=== PATIENT | female | born 1965 | race Caucasian/White ===

== ENCOUNTER 2017-12-20 14:50 | Emergency (ER) | END 2017-12-20 17:35 | disposition home or self-care (01) ==

== ENCOUNTER 2018-01-03 18:04 | Emergency (ER) | END 2018-01-03 21:09 | disposition home or self-care (01) ==

== ENCOUNTER 2018-10-29 11:11 | Emergency (ER) | payer MEDICAID ==
[~2018-10-29] VITALS: Ht 167.6 cm; Wt 62.6 kg
[~2018-10-29 11:11] MED LIST: IBUP-1542 PO
[2018-10-29 11:14] VITALS: BP 151/75; PULSE 69; RESP 20; Ht 167.6 cm; Wt 62.6 kg
[2018-10-29] MEDS ORDERED: ONDANSETRON (ODT) 4 MG TAB ODT STA (13:01)
[2018-10-29] MEDS ORDERED: LOPE2CAP PO (13:03)
[2018-10-29] MEDS ORDERED: ONDA4TAB14 PO (13:03)
--- NOTE | 2018-10-29 13:08 | ERD ---
ER Documentation Chief Complaint Chief Complaint Complains of vomiting and diarrhea x 2 days HPI 53-year-old female presents for nausea vomiting diarrhea times 2 days. She states that about 2 episodes of vomiting per day. She said 6 episodes of diarrhea per day. She states that the diarrhea is watery. No bright red blood or dark stools noted. She also has associated periumbilical abdominal pain which is noted to be mild. She states that the pain is worse with eating. No recent travel. No fevers or chills noted. Denies dysuria. ROS All systems reviewed and are negative except as per history of present illness. Medications Home Meds Active Scripts Loperamide Hcl* (Imodium*) 2 Mg Capsule, 2 MG PO TID PRN for DIARRHEA, #15 TAB Prov:AYLEEN REESE DO 10/29/18 Ondansetron (Ondansetron Odt) 4 Mg Tab.rapdis, 4 MG PO Q6H PRN for NAUSEA AND/OR VOMITING, #15 TAB Prov:AYLEEN REESE DO 10/29/18 Ibuprofen* (Motrin*) 600 Mg Tab, 600 MG PO Q6, #15 TAB Prov:FRANNY CASTILLO PA-C 01/03/18 Ibuprofen* (Motrin*) 600 Mg Tab, 600 MG PO Q6, #30 TAB Prov:AYLEEN BLACKWELL MD 12/20/17 Allergies Allergies: Coded Allergies: No Known Allergy (Unverified , 01/03/18) PMhx/Soc Medical and Surgical Hx: pt denies Medical Hx, pt denies Surgical Hx Hx Alcohol Use: No Hx Substance Use: No Hx Tobacco Use: No Smoking Status: Never smoker Physical Exam Vitals Vital Signs Date Temp Pulse Resp B/P (MAP) Pulse Ox O2 O2 Flow FiO2 Time Delivery Rate 10/29/18 98.5 69 20 151/75 100 11:14 (100) Physical Exam Const: No acute distress Resp: Clear to auscultation bilaterally Cardio: Regular rate and rhythm, no murmurs Abd: Soft, non distended. Normal bowel sounds, mild periumbilical tenderness to palpation, no Velazquez sign, no McBurney's point tenderness, no rebound or guar ding noted. Skin: No petechiae or rashes Back: No midline or flank tenderness Ext: No cyanosis, or edema Neur: Awake and alert Psych: Normal Mood and Affect Results 24 hrs Current Medications Medications Dose Sig/Ember Start Time Status Last (Trade) Ordered Route PRN Stop Time Admin Dose Reason Admin Ondansetron 4 mg ONCE STAT 10/29/18 DC HCl (Zofran ODT 13:01 10/29/18 Odt) 13:02 Procedures/MDM Medical Decision Making: Differential diagnosis includes but not limited to acute gastroenteritis, appendicitis, cholecystitis, pancreatitis. Patient appeared well on physical exam. Nontoxic appearing. Abdominal examination benign. There is low suspicion for acute abdomen. Patient likely has An acute gastroenteritis. Likely viral. ED course: Patient was given Zofran. Symptoms improved with treatment. Prescription(s): Patient given prescription for Zofran. Patient advised to follow up with PCP in 1-2 days. Patient advised to return to ED for new or worsening symptoms. Patient stable on discharge from the ED. Disclaimer: Inadvertent spelling and grammatical errors are likely due to EHR/dictation software use and do not reflect on the overall quality of patient care. Also, please note that the electronic time recorded on this note does not necessarily reflect the actual time of the patient encounter. Departure Diagnosis: Primary Impression: Nausea vomiting and diarrhea Condition: Fair Patient Instructions: Gastroenteritis, Viral (6Y-Adult) Referrals: COMMUNITY CLINICS YOU HAVE RECEIVED A MEDICAL SCREENING EXAM AND THE RESULTS INDICATE THAT YOU DO NOT HAVE A CONDITION THAT REQUIRES URGENT TREATMENT IN THE EMERGENCY DEPARTMENT. FURTHER EVALUATION AND TREATMENT OF YOUR CONDITION CAN WAIT UNTIL YOU ARE SEEN IN YOUR DOCTORS OFFICE WITHIN THE NEXT 1-2 DAYS. IT IS YOUR RESPONSIBILITY TO MAKE AN APPOINTMENT FOR FOLOW-UP CARE. IF YOU HAVE A PRIMARY DOCTOR --you should call your primary doctor and schedule an appointment IF YOU DO NOT HAVE A PRIMARY DOCTOR YOU CAN CALL OUR PHYSICIAN REFERRAL HOTLINE AT IF YOU CAN NOT AFFORD TO SEE A PHYSICIAN YOU CAN CHOSE FROM THE FOLLOWING [facility] CL[facility]ICS [facility] [address] [place] [facility] [address] [facility] [address] [facility] [address] [facility] [address] [facility]. [facility]. [address] Additional Instructions: Llame al doctor MAANA y shweta shira ZHANE PARA DENTRO DE 1-2 LINDSEY.Dgale a la secretaria que nosotros le instruimos hacer esta zhane.Avise o llame si gray condicin se empeora antes de la zhane. Regresa aqui si peor o no mejor. AYLEEN REESE DO Oct 29, 2018 13:08
== END 2018-10-29 13:16 | disposition home or self-care (01) ==
LOC: FTE 11:11
DX: R11.2 Nausea with vomiting, unspecified (principal); R19.7 Diarrhea, unspecified
CPT/HCPCS: Z7502; Z7610; 99283

== ENCOUNTER 2018-12-17 14:04 | Emergency (ER) | payer MEDICAID ==
[~2018-12-17] VITALS: Wt 63.6 kg
[~2018-12-17 14:04] MED LIST changes: +LOPE2CAP PO; +ONDA4TAB14 PO
[2018-12-17 16:09] VITALS: BP 145/91; PULSE 84; RESP 20
[2018-12-17] MEDS ORDERED: KETOROLAC 30 MG INJ IM STA (16:41)
[2018-12-17] MEDS ORDERED: HYDROCODONE/APAP (5/325) TAB PO ONE (17:00)
[2018-12-17] MEDS ORDERED: HYDR-4011 PO (17:56)
[2018-12-17] MEDS ORDERED: IBUP-1542 PO (17:56)
--- NOTE | 2018-12-17 17:59 | ERD ---
ER Documentation Chief Complaint Chief Complaint S/P MECHANICAL FALL FROM~3.5 FEET HIGH TODAY C/O L HIP, L GROIN PAIN HPI 53-year-old female slipped while cleaning some stairs. She landed on her left side but did not fall down the stairs. Her primary complaints of left rib pain and left hip pain. She is able to ambulate although with discomfort. Denies any head injury, neck pain, weakness or deficits. There is no bleeding or lacerations. ROS All systems reviewed and are negative except as per history of present illness. Medications Home Meds Active Scripts Hydrocodone/Acetaminophen ([place] 5-325 Tablet) 1 Each Tablet, 1 TAB PO Q6H PRN for PAIN, #7 TAB Prov:LA NENA VASQUEZ MD 12/17/18 Ibuprofen* (Motrin*) 600 Mg Tab, 600 MG PO Q6, #20 TAB Prov:LA NENA VASQUEZ MD 12/17/18 Loperamide Hcl* (Imodium*) 2 Mg Capsule, 2 MG PO TID PRN for DIARRHEA, #15 TAB Prov:AYLEEN REESE DO 10/29/18 Ondansetron (Ondansetron Odt) 4 Mg Tab.rapdis, 4 MG PO Q6H PRN for NAUSEA AND/OR VOMITING, #15 TAB Prov:AYLEEN REESE DO 10/29/18 Ibuprofen* (Motrin*) 600 Mg Tab, 600 MG PO Q6, #15 TAB Prov:FRANNY CASTILLO PA-C 01/03/18 Ibuprofen* (Motrin*) 600 Mg Tab, 600 MG PO Q6, #30 TAB Prov:AYLEEN BLACKWELL MD 12/20/17 Allergies Allergies: Coded Allergies: No Known Allergy (Unverified , 01/03/18) PMhx/Soc Medical and Surgical Hx: pt denies Medical Hx, pt denies Surgical Hx History of Surgery: No Anesthesia Reaction: No Hx Neurological Disorder: No Hx Respiratory Disorders: No Hx Cardiac Disorders: No Hx Psychiatric Problems: No Hx Miscellaneous Medical Probl: No Hx Alcohol Use: No Hx Substance Use: No Hx Tobacco Use: No Smoking Status: Never smoker FmHx Family History: No diabetes, No coronary disease, No other Physical Exam Vitals Vital Signs Date Temp Pulse Resp B/P (MAP) Pulse Ox O2 O2 Flow FiO2 Time Delivery Rate 12/17/18 99.1 84 20 145/91 98 16:09 (109) Physical Exam Const: No acute distress Head: Atraumatic Eyes: Normal Conjunctiva ENT: Normal External Ears, Nose and Mouth. Neck: Full range of motion. No meningismus. Resp: Clear to auscultation bilaterally Cardio: Regular rate and rhythm, no murmurs. Tenderness left approximately T10 area without crepitance, deformities, ecchymosis. Abd: Soft, non tender, non distended. Normal bowel sounds Skin: No petechiae or rashes Back: No midline or flank tenderness Ext: No cyanosis, or edema. Pain passive range of motion of the left hip. Patient is able to ablate all with the with discomfort. No appreciable focal neurologic deficits. Neur: Awake and alert Psych: Normal Mood and Affect Results 24 hrs Current Medications Medications Dose Sig/Ember Start Time Status Last (Trade) Ordered Route PRN Stop Time Admin Dose Reason Admin Ketorolac 30 mg ONCE STAT 12/17/18 DC 12/17/18 Tromethamine IM 16:41 16:52 (Toradol) 12/17/18 16:42 1 tab ONCE ONCE 12/17/18 DC 12/17/18 Acetaminophen PO 17:00 16:51 / 12/17/18 17:01 Hydrocodone Bitart ([place] (5/325)) Procedures/MDM X-ray left hip 2V Interpreted by me: Bones: No fracture Joints: No dislocation Foreign body: None impression-normal left hip x-ray X-ray left ribs 2V Interpreted by me: Soft Tissue: No acute abnormalities Bones: No acute abnormalities Mediastinum/Cardiac Silhouette/Lungs:No acute abnormalities. Impression have a normal left rib x-ray She was given Toradol 30 mg IM and [place] 500 mL. Patient presents after mechanical fall signs of left rib contusion left hip strain without signs of fracture, dislocation, head injury, neck injury, additional complications due to her mechanical fall today. She will discharged home with a short course of [place], ibuprofen, primary care follow-up and return precautions. Cures review negative. The patient was stable with no new complaints during the ER course. Clinically, there is no current evidence to suggest meningitis, sepsis, acute abdomen, pneumonia, stroke, acute coronary syndrome, pulmonary embolism, aortic dissection or any other emergent condition appearing to require further evaluation or hospitalization. Patient counseled regarding my diagnostic impression and care plan. Prior to discharge all questions answered. Pt agrees with treatment plan and understands strict return precautions. Pt is instructed to follow up with primary care provider within 24-48 hours. Precautionary instructions provided including instructions to return to the ER if not improving or for any worsening or changing symptoms or concerns. Departure Diagnosis: Primary Impression: Hip strain Encounter type: initial encounter Laterality: left Qualified Codes: S76.012A - Strain of muscle, fascia and tendon of left hip, initial encounter Additional Impressions: Contusion of ribs Encounter type: initial encounter Laterality: left Qualified Codes: S20.212A - Contusion of left front wall of thorax, initial encounter Fall with no significant injury Encounter type: initial encounter Qualified Codes: W19.XXXA - Unspecified fall, initial encounter Condition: Stable Patient Instructions: Fall, Mechanical, Hip Strain, Rib Contusion Additional Instructions: X-rays normal. Examines normal hoy. Cheque otro vez con gray doctor primario en el proximo cloud or regresa para mas o nueva simptomas. LA NENA VASQUEZ MD Dec 17, 2018 17:59
== END 2018-12-17 18:20 | disposition home or self-care (01) ==
LOC: FTE 14:04
DX: S76.012A Strain of muscle, fascia and tendon of left hip, initial encounter (principal); S20.212A Contusion of left front wall of thorax, initial encounter; W10.9XXA Fall (on) (from) unspecified stairs and steps, initial encounter; Y92.9 Unspecified place or not applicable
CPT/HCPCS: 71100; 73510; 96372; J1885; Z7502; Z7610

== ENCOUNTER 2018-12-25 15:02 | Emergency (ER) | payer MEDICAID ==
[~2018-12-25] VITALS: Ht 157.5 cm; Wt 63.0 kg
[~2018-12-25 15:02] MED LIST changes: +HYDR-4011 PO
[2018-12-25 15:07] VITALS: BP 168/78; PULSE 77; RESP 18; Ht 157.5 cm; Wt 63.0 kg
[2018-12-25] MEDS ORDERED: HYDR-4011 PO (16:12)
[2018-12-25] MEDS ORDERED: CYCL10TA7 PO (16:12)
--- NOTE | 2018-12-25 16:16 | ERD ---
ER Documentation Chief Complaint Chief Complaint LEFT SIDED RIB PAIN FROM FALL 1 WEEK AGO HPI 53-year-old female presents with left-sided rib cage pain and mid lower back pain that she had for about 8 days after she fell. She was seen here at that time and had x-rays which were negative. She was given prescriptions for ibuprofen and [place]. She states she continues to have pain particularly in the left ribs it feels like a pulling. No new recent trauma. ROS All systems reviewed and are negative except as per history of present illness. Medications Home Meds Active Scripts Hydrocodone/Acetaminophen ([place] 5-325 Tablet) 1 Each Tablet, 1 TAB PO Q6H PRN for PAIN, #15 TAB Prov:ALFRED IVERSON PA-C 12/25/18 Cyclobenzaprine Hcl* (Cyclobenzaprine Hcl*) 10 Mg Tablet, 10 MG PO TID, #15 TAB Prov:ALFRED IVERSON PA-C 12/25/18 Hydrocodone/Acetaminophen ([place] 5-325 Tablet) 1 Each Tablet, 1 TAB PO Q6H PRN for PAIN, #7 TAB Prov:LA NENA VASQUEZ MD 12/17/18 Ibuprofen* (Motrin*) 600 Mg Tab, 600 MG PO Q6, #20 TAB Prov:LA NENA VASQUEZ MD 12/17/18 Loperamide Hcl* (Imodium*) 2 Mg Capsule, 2 MG PO TID PRN for DIARRHEA, #15 TAB Prov:AYLEEN REESE DO 10/29/18 Ondansetron (Ondansetron Odt) 4 Mg Tab.rapdis, 4 MG PO Q6H PRN for NAUSEA AND/OR VOMITING, #15 TAB Prov:AYLEEN REESE DO 10/29/18 Ibuprofen* (Motrin*) 600 Mg Tab, 600 MG PO Q6, #15 TAB Prov:FRANNY CASTILLO PA-C 01/03/18 Ibuprofen* (Motrin*) 600 Mg Tab, 600 MG PO Q6, #30 TAB Prov:AYLEEN BLACKWELL MD 12/20/17 Allergies Allergies: Coded Allergies: No Known Allergy (Unverified , 01/03/18) PMhx/Soc History of Surgery: No Anesthesia Reaction: No Hx Neurological Disorder: No Hx Respiratory Disorders: No Hx Cardiac Disorders: No Hx Psychiatric Problems: No Hx Miscellaneous Medical Probl: No Hx Alcohol Use: No Hx Substance Use: No Hx Tobacco Use: No FmHx Family History: No diabetes Physical Exam Vitals Vital Signs Date Temp Pulse Resp B/P (MAP) Pulse Ox O2 O2 Flow FiO2 Time Delivery Rate 12/25/18 99.6 77 18 168/78 99 15:07 (108) Physical Exam INITIAL VITAL SIGNS: Reviewed by me GENERAL: Awake, alert and oriented x 4, well appearing, nontoxic, speaking in full sentences. No acute distress HEAD: Atraumatic NECK: Supple. No masses. Full range of motion. No meningismus. No midline tenderness. RESPIRATORY: Clear to auscultation bilaterally. Symmetric chest wall rise. No wheezing or rales. No accessory muscle use. CV: Regular rate and rhythm. No murmurs, rubs, or gallops. Left lower lateral rib cage no step-offs or bony abdomen EXTREMITIES: No clubbing or cyanosis. No edema. Moving all extremities normally. Back Exam: Compartments: Soft Motor: Normal flexion and extension of bilateral hip/knee/ankle/foot Sensation: Intact to light touch throughout Bones: No midline TTP Procedures/MDM Patient has continued pain after fall 8 days ago. I offered to redo x-rays but she declined. I gave her a prescription for a few more [place] and Flexeril. Patient counseled regarding my diagnostic impression and care plan. Prior to discharge all questions answered. Pt agrees with treatment plan and understands strict return precautions. Pt is instructed to follow up with primary care prov ider within 24-48 hours. Precautionary instructions provided including instructions to return to the ER if not improving or for any worsening or changing symptoms or concerns. Departure Diagnosis: Primary Impression: Back pain Additional Impression: Rib pain Condition: Stable Patient Instructions: Back Pain (Acute Or Chronic), Rib Contusion Additional Instructions: Call your primary care doctor TOMORROW for an appointment during the next 1-2 days.See the doctor sooner or return here if your condition worsens before your appointment time. ALFRED IVERSON PA-C Dec 25, 2018 16:16
== END 2018-12-25 16:56 | disposition home or self-care (01) ==
LOC: FTE 15:02
DX: M54.5 Low back pain (principal)
CPT/HCPCS: 99283